=== PATIENT | female | born 1990 | race Caucasian/White ===

== ENCOUNTER 2019-06-05 10:20 | Emergency (ER) | payer OTHER, SELFPAY ==
--- NOTE | 2019-06-05 10:24 | ED.GENADULT ---
HPI - General Adult General Chief complaint: Urogenital-Female Stated complaint: Possible UTI/yeast infection Time Seen by Provider: 06/05/19 10:39 Source: patient Mode of arrival: ambulatory Limitations: no limitations History of Present Illness HPI narrative: 28-year-old female patient presents to the [facility] with complaints of vaginal irritation and itchiness for the past 3 days. Patient states that she has recently been on her. To her. Did stop yesterday. Patient states she has had some clear/white vaginal discharge, itchiness, and irritation. Patient states she does not have any concerns for STDs because she is and in a monogamous relationship. Patient denies any pain with urination, urgency or frequency. Denies any back pain. Denies any fevers, nausea, vomiting or diarrhea. Related Data Home Medications Medication Instructions Recorded Confirmed spironolactone 06/05/19 tretinoin TOPICAL 06/05/19 Allergies Allergy/AdvReac Type Severity Reaction Status Date / Time No Known Allergies Allergy Unknown Verified 10/14/18 19:42 Review of Systems Review of Systems: Narrative: CONSTITUTIONAL: Denies fever, chills, or sweats. EYES: Denies visual changes, redness, or discharge. ENT: Denies rhinorrhea, congestion, sore throat, or otalgia. CARDIOVASCULAR: Denies chest pain, palpitations, or edema. RESPIRATORY: Denies cough or dyspnea. GASTROINTESTINAL: Denies abdominal pain, nausea, vomiting, or diarrhea. GENITOURINARY: Denies dysuria or hematuria. Positive for vaginal irritation and itchiness x3 days SKIN: Denies rash or itching. MUSCULOSKELETAL: Denies back pain, joint pain, or myalgia. NEUROLOGIC: Denies headache, numbness, or weakness. PSYCHIATRIC: Denies anxiety or depression. PMFSH Comments At the time of my signature I agree with nursing past medical history, surgical, social, and family history. There is no relevant family history pertinent to the presenting complaint. Exam Narrative: Exam Narrative: GENERAL: Well-appearing, well-nourished, and in no acute distress. HEAD: Normocephalic, atraumatic. EYES: PERRLA and EOMI. ENT: Nares clear, no rhinorrhea or epistaxis. Mucous membranes moist. NECK: Supple. No lymphadenopathy CHEST: Clear to auscultation. No respiratory distress. HEART: Regular rate and rhythm. No murmur heard. Normal peripheral pulses. ABDOMEN: Soft, nontender, nondistended, normal active bowel sounds. No CVA tenderness on percussion : Normal external female genitalia. OS is closed. No adnexal fullness or TTP. No CVA tenderness to percussion. There is some yellow, thin stringy discharge noted on exam as well as a fishy odor during exam. EXTREMITIES: Normal range of motion. No edema. SKIN: Warm, dry, no rash. NEURO: No focal deficits. Alert and oriented x3. Course Vital Signs Vital signs: Vital Signs Temperature 36.4 C 06/05/19 10:31 Pulse Rate 77 06/05/19 10:31 Respiratory Rate 16 06/05/19 10:31 Blood Pressure 117/72 06/05/19 10:31 Pulse Oximetry 100 06/05/19 10:31 Temperature 36.4 C 06/05/19 10:31 Pulse Rate 77 06/05/19 10:31 Respiratory Rate 16 06/05/19 10:31 Blood Pressure 117/72 06/05/19 10:31 Pulse Oximetry 100 06/05/19 10:31 Vital signs reviewed. Medical Decision Making Differential Diagnosis Differential Diagnosis: Differential diagnosis: Uncomplicated lower UTI, uncomplicated UTI, pyelonephritis. Gonorrhea, chlamydia, Trichomonas, bacterial vaginosis, herpes, HIV, yeast infection, urinary tract infection. Notify patient that based on her physical exam findings I think this is most likely bacterial vaginosis is causing her symptoms especially since this is right around her. Area. Discussed with her that since she does not have any concerns for STD and she is in a monogamous relationship we can still test her if she would like however patient denies stating that she does not need testing. Discussed with patient we will
[2019-06-05 10:31] VITALS: BP 117/72; PULSE 77; RESP 16; TEMP 36.4; O2SAT 100
== END 2019-06-05 11:03 | disposition home or self-care (01) ==
PROVIDERS: Emergency Provider Nurse Practitioner Family; PCP Emergency Medicine
DX: N76.0 Acute vaginitis (principal)
CPT/HCPCS: 81003; 81025; 99213; G0463

== ENCOUNTER 2020-01-08 16:47 | Emergency (ER) | payer OTHER, SELFPAY ==
[2020-01-08 16:53] VITALS: BP 132/72; PULSE 83; RESP 16; TEMP 36.6; O2SAT 98
--- NOTE | 2020-01-08 17:06 | ED.LOWEXIN ---
HPI - Extremity Injury (Lower) General Chief Complaint: Extremity Injury, Lower Stated Complaint: R KNEE PAIN Source: patient and RN notes reviewed Limitations: no limitations History of Present Illness HPI Narrative: Patient, previously healthy presents with right knee pain. 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 She complains of mild anterior knee pain distal to the patella. No lockup, give way, swelling, warmth, redness, known priuor injury; symptoms are mild, worse with activity and better with rest Related Data Allergies Allergy/AdvReac Type Severity Reaction Status Date / Time No Known Allergies Allergy Unknown Verified 01/09/20 19:31 Review of Systems Review of Systems: Narrative: General/Constitutional: No weight loss,fever Eyes: N0: Redness,discharge Ears/Nose/Throat: No: Epistaxis,ear discharge Respiratory: Denies: Hemoptysis Gastrointestinal: No Vomiting, Bleeding-rectal Skin: No Lumps, eruption Neurologic: No Focal Weakness,Sz Hematologic: Denies: Petechiae/Purpura Psychiatric: No: Suicida ideationl All Other Systems: Reviewed and Negative PMFSH Past Medical History Medical History No acute medical problems Family History Family History Other No acute medical problems Social History Social History Smoking status: Never smoker Alcohol intake: never Comments At time of signature, agree with nursing past medical, surgical, social and family history. There is no relevant family history pertinent to the presenting complaint Exam Narrative: Exam Narrative: General Appearance: Well appearing, Well nourished, No distress EYE: PERRLA, EOMI, Conjunctiva clear Ears: External ear normal, Auditory canal normal Nose: Normal nose, Nares clear Mouth/Throat: Normal appearing, Normal lips Supple Respiratory: Airway patent, No respiratory distress Ms knee: Normal strength (mostly intact, limited flexion/extension by pain), Tenderness anteriorly at the patellar tendon with mild decreased ROM), no swelling, Other :no anterior drawer, no collateral laxity, no Jackson, no patellar grind/apprehension Skin: No joint line tenderness, no effusion warm, Dry, Normal color Neurological: A&O x3, Speech clear, CN II-XII intact Psychiatric: Normal mood, Normal affect Course Vital Signs Vital signs: Vital Signs Temperature 97.8 F 01/08/20 16:53 Pulse Rate 83 01/08/20 16:53 Respiratory Rate 16 01/08/20 16:53 Blood Pressure 132/72 01/08/20 16:53 Pulse Oximetry 98 01/08/20 16:53 Temperature 97.8 F 01/08/20 16:53 Pulse Rate 83 01/08/20 16:53 Respiratory Rate 16 01/08/20 16:53 Blood Pressure 132/72 01/08/20 16:53 Pulse Oximetry 98 01/08/20 16:53 Discharge Plan Discharge Clinical Impression: Acute internal derangement of knee Qualifiers: Laterality: right Qualified Code(s): M23.91 - Unspecified internal derangement of right knee Anterior knee pain Qualifiers: Laterality: right Qualified Code(s): M25.561 - Pain in right knee Patient Disposition: Home, Self-Care Condition: Stable Instructions: Patellofemoral Pain Syndrome Exercises (ED) Additional Instructions: You may use OTC pain medicines like Aleve, Motrin etc. with these prescriptions, but take with food Prescriptions: New prednisone 20 mg tablet 60 mg PO DAILY Qty: 9 RF: 0 tramadol 50 mg tablet 50 mg PO Q6H PRN (Reason: pain) Qty: 15 RF: 1 No Action cephalexin 500 mg capsule 500 mg PO Q12H Qty: 10 RF: 0 fluconazole [Diflucan] 150 mg tablet 150 mg PO ONCE Qty: 1 RF: 0 Follow-up/Referrals: PHYSICIAN,RESEARCH LABORATORY TECHNICIAN [Primary Care Provider] -
== END 2020-01-08 17:14 | disposition home or self-care (01) ==
PROVIDERS: Emergency Provider Emergency Medicine
DX: M23.91 Unspecified internal derangement of right knee (principal)
CPT/HCPCS: 99213; G0463

== ENCOUNTER 2020-01-09 19:29 | Emergency (ER) | payer OTHER, SELFPAY ==
[2020-01-09 19:34] VITALS: BP 131/90; PULSE 79; RESP 16; TEMP 37.1; O2SAT 100
--- NOTE | 2020-01-09 19:37 | ED.FEMALEGU ---
HPI - Female Genitourinary General Chief complaint: Urogenital-Female Stated complaint: Possible UTI Time Seen by Provider: 01/09/20 19:37 Source: patient Mode of arrival: ambulatory Limitations: no limitations History of Present Illness HPI Narrative: Noah Riggins is a 29 yo female with no PMH who comes to express care with c/o possible uti. Was seen at [place] last night for knee derangement. Today states that she is having dysuria, burning x 3 days - took azo x 3 days. Did not discuss with provider yesterday. Related Data Allergies Allergy/AdvReac Type Severity Reaction Status Date / Time No Known Allergies Allergy Unknown Verified 01/09/20 19:31 Review of Systems Review of Systems: Narrative: CONSTITUTIONAL: Denies fever, chills, sweats. EYES: Denies visual changes, redness, discharge. ENT: Denies rhinorrhea, congestion, sore throat, otalgia. CARDIOVASCULAR: Denies chest pain, palpitations, edema. RESPIRATORY: Denies dyspnea, wheezing, cough GASTROINTESTINAL: Denies abdominal pain, nausea, vomiting, diarrhea. GENITOURINARY:has dysuria, no hematuria, no abnormal discharge SKIN: Denies rash or itching. NEUROLOGIC: Denies numbness, or focal weakness. PSYCHIATRIC: Denies anxiety or depression. PMFSH Past Medical History Medical History No acute medical problems Family History Family History Other No acute medical problems Social History Social History Smoking status: Never smoker Alcohol intake: never Comments At time of signature, I agree with nursing past medical, surgical, social and family history. There is no relevant family history pertinent to the presenting complaint. Exam Narrative: Exam Narrative: GENERAL: This is a well-nourished, well-developed patient, in mild distress. HEAD: normocephalic, atraumatic. EYES: Sclera clear/white. Vision is grossly intact. EARS: External ears normal,. Hearing grossly intact. NOSE: External nose normal without nasal discharge, nares without redness, no rhinorrhea. THROAT: Mucous membranes moist, NECK: Neck supple, CARDIOVASCULAR: Regular rate and rhythm without murmurs, gallops, or rubs. RESPIRATORY: Clear to auscultation. Breath sounds equal bilaterally. No wheezes, rales, or rhonchi. GASTROINTESTINAL: Abdomen soft, non-tender, SKIN: warm, intact with no suspicious lesions or rash, good texture and turgor. NEURO: awake, alert, and oriented to person, place and time. There were no obvious focal neurologic abnormalities. Steady gait EXTREMITIES: Normal range of motion. BACK: Nontender without deformity Course Course Emergency Course: Came to express care with complaints of dysuria x3 days, treated medication for knee pain Urine dip shows positive for nitrate and leukocyte esterase-started on cephalexin Educated patient to take medication as prescribed and push fluids Vital Signs Vital signs: Vital Signs Temperature 98.7 F 01/09/20 19:34 Pulse Rate 79 01/09/20 19:34 Respiratory Rate 16 01/09/20 19:34 Blood Pressure 131/90 01/09/20 19:34 Pulse Oximetry 100 01/09/20 19:34 Temperature 98.7 F 01/09/20 19:34 Pulse Rate 79 01/09/20 19:34 Respiratory Rate 16 01/09/20 19:34 Blood Pressure 131/90 01/09/20 19:34 Pulse Oximetry 100 01/09/20 19:34 MDM - Female Genitourinary Differential Diagnosis Differential diagnosis: Likely urinary tract infection, cystitis and other Lab Data Labs: Urine Glucose 1+ Reference Range: Negative Urine Bilirubin 2+ Reference Range: Negative Urine Ketone Trace Reference Range: Negative Urine Specific Steele
== END 2020-01-09 19:53 | disposition home or self-care (01) ==
PROVIDERS: Emergency Provider Nurse Practitioner
DX: N30.01 Acute cystitis with hematuria (principal)
CPT/HCPCS: 81003; 87086; 99213; G0463

== ENCOUNTER 2020-03-01 10:05 | Emergency (ER) | payer OTHER, SELFPAY ==
[2020-03-01 10:18] VITALS: BP 119/73; PULSE 91; RESP 16; TEMP 36.8; O2SAT 100
--- NOTE | 2020-03-01 11:14 | ED.FEMALEGU ---
HPI - Female Genitourinary General Chief complaint: Urogenital-Female Stated complaint: cramping, pos uti Time Seen by Provider: 03/01/20 11:05 Source: patient and RN notes reviewed Mode of arrival: ambulatory Limitations: no limitations History of Present Illness HPI Narrative: Patient presents today complaining of malodorous urine and urinary frequency with abdominal cramping x3 days. Denies dysuria, hematuria. She does report some clear vaginal discharge, but no abnormal vaginal discharge. Denies any additional symptoms. She does have an DIETITIAN CHIEF, but states it has been difficult to see them during the pandemic. She has tried no [id number] treatment prior to arrival. Related Data Home Medications Medication Instructions Recorded Confirmed No Home Medications 03/01/20 03/01/20 Allergies Allergy/AdvReac Type Severity Reaction Status Date / Time No Known Allergies Allergy Unknown Verified 03/01/20 10:37 Review of Systems Review of Systems: Narrative: CONSTITUTIONAL: Denies body aches, fever, chills, or sweats. EYES: Denies visual changes, redness, or discharge. ENT: Denies rhinorrhea, congestion, sore throat, or otalgia. CARDIOVASCULAR: Denies chest pain, palpitations, or edema. RESPIRATORY: Denies cough or dyspnea. GASTROINTESTINAL: Denies abdominal pain, nausea, vomiting, or diarrhea. GENITOURINARY: Denies dysuria or hematuria. + Malodorous urine, frequency, lower abdominal cramping SKIN: Denies rash, itching, or wounds. MUSCULOSKELETAL: Denies back pain, joint pain, or myalgia. NEUROLOGIC: Denies headache, numbness, tingling, or weakness. PSYCH: Denies depression or anxiety. [facility] Past Medical History Medical History No acute medical problems Family History Family History Other No acute medical problems Social History Social History Smoking status: Never smoker Alcohol intake: never Comments At time of signature, I have reviewed and agree with nursing past medical, surgical, social and family history unless otherwise noted. Please see nursing chart for further information. There is no relevant family history pertinent to the presenting complaint Exam Narrative: Exam Narrative: GENERAL: Well-appearing, well-nourished, and in no acute distress. HEAD: Normocephalic, atraumatic. EYES: EOMI. No redness or drainage. Conjunctivae normal. ENT: Mucous membranes pink and moist. NECK: Normal AROM. CHEST: No respiratory distress. Clear to auscultation. HEART: Regular rate and rhythm. No murmur appreciated. Normal peripheral pulses. ABDOMEN: Soft, nontender, nondistended, normal active bowel sounds. MUSCULOSKELETAL: No bony tenderness. EXTREMITIES: Normal range of motion. No edema. SKIN: Warm, dry, no rash. Capillary refill normal. Normal skin turgor. NEURO: No focal deficits. Alert and oriented x3. Gait steady. PSYCH: Normal affect. No signs of depression or anxiety. Course Vital Signs Vital signs: Vital Signs Temperature 98.3 F 03/01/20 10:18 Pulse Rate 91 03/01/20 10:18 Respiratory Rate 16 03/01/20 10:18 Blood Pressure 119/73 03/01/20 10:18 Pulse Oximetry 100 03/01/20 10:18 Temperature 98.3 F 03/01/20 10:18 Pulse Rate 91 03/01/20 10:18 Respiratory Rate 16 03/01/20 10:18 Blood Pressure 119/73 03/01/20 10:18 Pulse Oximetry 100 03/01/20 10:18 Reviewed MDM - Female Genitourinary Differential Diagnosis Differential diagnosis: Likely urinary tract infection, cervicitis, vaginitis and cystitis Lab Data Attestation: I reviewed the patient's lab results. Labs: Urine Glucose Negative Reference Range: Negative Urine Bilirubin Negative Reference Range: Negative
== END 2020-03-01 11:25 | disposition home or self-care (01) ==
PROVIDERS: Emergency Provider Nurse Practitioner; PCP Emergency Medicine
DX: R82.998 Other abnormal findings in urine (principal); N80.9 Endometriosis, unspecified
CPT/HCPCS: 81003; 99212; G0463

== ENCOUNTER 2021-02-22 09:45 | Emergency (ER) | payer OTHER, SELFPAY ==
--- NOTE | 2021-02-22 09:51 | ED.SKABFB ---
HPI - Skin/Abscess/Foreign Bdy General Chief complaint: Skin/Abscess/Foreign Body Stated complaint: Rash Time Seen by Provider: 02/22/21 10:19 Source: patient and RN notes reviewed Mode of arrival: ambulatory Limitations: no limitations History of Present Illness HPI narrative: 30-year-old female presents with concern for itchy rash. She reports generalized rash for the past 2 days. Reports the rash changes in location. Reports hive-like rash on the arms, legs, torso that will go away and come back in another area. She denies any swollen lips, swollen tongue, trouble breathing, diarrhea, fever, nausea, vomiting. She denies any known triggers, any new medications or foods. She denies history of something like this in the past. MD complaint: rash Related Data Home Medications Medication Instructions Recorded Confirmed No Home Medications 03/01/20 03/01/20 Allergies Allergy/AdvReac Type Severity Reaction Status Date / Time No Known Allergies Allergy Unknown Verified 02/22/21 10:07 Review of Systems Review of Systems: CONSTITUTIONAL: Denies malaise, chills, sweats, or fever. EYES: Denies visual changes, redness, or discharge. ENT: Denies rhinorrhea, congestion, sinus pain, otalgia or sore throat. Denies swollen lips, swollen tongue CARDIOVASCULAR: Denies chest pain, palpitations, or edema. RESPIRATORY: Denies cough or dyspnea. GASTROINTESTINAL: Denies abdominal pain, nausea, vomiting, diarrhea SKIN: Reports generalized itchy rash changes in location MUSCULOSKELETAL: Denies myalgia. NEUROLOGIC: Denies headache. All systems reviewed & are unremarkable except as noted in HPI and below PMFSH Past Medical History Medical History No acute medical problems Family History Family History Other No acute medical problems Social History Social History Smoking status: Never smoker Alcohol intake: never Comments At time of signature, agree with nursing past medical, surgical, social and family history. There is no relevant family history pertinent to the presenting complaint Exam Narrative: GENERAL: Well-appearing, well-nourished, and in no acute distress. HEAD: Normocephalic, atraumatic. EYES: PERRLA, conjunctivae clear, and EOMI. ENT: Mucous membranes moist. Oropharynx without edema, erythema or lesions. NECK: Supple. No lymphadenopathy CHEST: Clear to auscultation. No respiratory distress. HEART: Regular rate and rhythm. SKIN: Warm, dry. Hive-like rash noted to arms, legs, torso NEURO: Alert and oriented x3. PSYCH: Normal mood and affect Course Course Emergency Course: Patient is aware of diagnosis, understands and agrees to treatment plan. Anticipatory guidance given. Patient agrees to follow-up as directed and is aware of reasons to seek care at the emergency department. Portions of this record may have been created with voice recognition software Vital Signs Vital signs: Reviewed. MDM - Skin/Abscess/Foreign Bdy MDM Narrative Medical decision making narrative: Does not appear at this time to be erythema multiforme, bullous, SJS, TEN; no evidence at this time to suggest RMSF, endocarditis or Lyme disease; patient looks well, nontoxic and is tolerating oral intake; no neurologic signs or symptoms; no headache, photophobia or neck pain; afebrile; appropriate for initial outpatient treatment; discussed the importance of follow-up, patient agrees; question, viral exanthema, contact dermatitis, allergic dermatitis, eczema, urticaria, drug rash, shingles. No soft palate or uvula edema, no tongue, lip edema or other mucosal involvement, no respiratory compromise, no stridor, no wheezing, no wheezing, no history of syncope, no hypotension, no nausea, vomiting, or diarrhea. Instructed patient to go to nearest ER immediately for any worsening symptoms in
[2021-02-22 09:58] VITALS: BP 114/67; PULSE 70; RESP 16; TEMP 37; O2SAT 100
== END 2021-02-22 10:30 | disposition home or self-care (01) ==
PROVIDERS: Emergency Provider Nurse Practitioner; PCP Emergency Medicine
DX: L50.9 Urticaria, unspecified (principal)
CPT/HCPCS: 99211; G0463